=== PATIENT | female | born 1985 | race Caucasian/White ===

== ENCOUNTER 2018-01-22 18:52 | Outpatient (CLI) | payer OTHER | END 2018-01-22 20:35 | disposition home or self-care (01) | LOC: OBT 18:52 → L-D 18:53 → OBT 20:35 | DX: O24.419 Gestational diabetes mellitus in pregnancy, unspecified control (principal); Z3A.34 34 weeks gestation of pregnancy | CPT/HCPCS: 76818 ==

== ENCOUNTER 2018-02-13 00:31 | Inpatient (IN) | payer OTHER ==
[2018-02-13] MEDS: LACTATED RINGER'S 1,000 ML IV ×4 (02:11→19:52)
[2018-02-13 02:13] LABS: ADD MAN DIFF? NO
[2018-02-13 02:15] LABS: BASOPHILS % 0.4 % (0.0-2.0); EOSINOPHILS # 0.1 10^3/ul (0.0-0.5); EOSINOPHILS % 1.4 % (0.0-7.0); HEMATOCRIT 35.9 % (37.0-47.0); HEMOGLOBIN 12.3 g/dl (12.0-16.0); LYMPHOCYTES # 1.7 10^3/ul (0.8-2.9); LYMPHOCYTES % 16.3 % (15.0-51.0); MEAN CORPUSCULAR HEMOGLOBIN 31.1 pg (29.0-33.0); MEAN CORPUSCULAR HGB CONC 34.3 g/dl (32.0-37.0); MEAN CORPUSCULAR VOLUME 90.9 fl (82.0-101.0); MEAN PLATELET VOLUME 11.3 fl (7.4-10.4); MONOCYTE # 0.7 10^3/ul (0.3-0.9); MONOCYTES % 6.3 % (0.0-11.0); NEUTROPHIL # 7.8 10^3/ul (1.6-7.5); PLATELET COUNT 193 10^3/UL (140-415); RED BLOOD COUNT 3.95 10^6/ul (4.20-5.40); RED CELL DISTRIBUTION WIDTH 13.4 % (11.5-14.5)
[2018-02-13 02:15] LABS: WHITE BLOOD COUNT 10.4 10^3/ul (4.8-10.8)
[2018-02-13] MEDS ORDERED: OXYTOCIN 30 UNITS/LR 500 ML IV ×2 (02:30→09:30)
[2018-02-13] MEDS ORDERED: CARBOPROST 250 MCG INJ IM ×2 (02:30→09:30)
[2018-02-13] MEDS ORDERED: METHYLERGONOVINE 0.2 MG INJ IM ×2 (02:30→09:30)
[2018-02-13] MEDS ORDERED: MISOPROSTOL 200 MCG TAB PR ×2 (02:30→09:30)
[2018-02-13 02:35] LABS: INR 0.86; PARTIAL THROMBOPLASTIN TIME 27.9 Sec (23.0-35.0); PROTIME 11.8 Sec (11.9-14.9); PT RATIO 0.9
[2018-02-13] MEDS: CITRIC ACID/NA CITRATE 30 ML CUP PO ×2 (03:00)
[2018-02-13] MEDS: ONDANSETRON 4 MG INJ IV ×2 (03:07)
[2018-02-13 03:09] LABS: HEPATITIS B SURFACE ANTIGEN NEGATIVE (NEGATIVE)
[2018-02-13] MEDS ORDERED: PHENYLephrine (100 MCG/ML) 5ML SYG (03:23)
[2018-02-13] MEDS ORDERED: METOCLOPRAMIDE 10 MG INJ (03:24)
[2018-02-13] MEDS ORDERED: DEXAMETHASONE 4 MG/ML 1 ML INJ (03:24)
[2018-02-13] MEDS ORDERED: OXYTOCIN 10 UNIT INJ (03:24)
[2018-02-13] MEDS ORDERED: KETOROLAC 30 MG INJ (03:24)
[2018-02-13] MEDS ORDERED: morphine SULFATE/PF (10 MG/10 ML) INJ (03:38)
[2018-02-13] MEDS ORDERED: MEPERIDINE 100 MG INJ (03:47)
[2018-02-13] MEDS ORDERED: DIPHENHYDRAMINE 50 MG INJ (03:49)
[2018-02-13] MEDS ORDERED: NALOXONE (0.4 MG/ML) INJ IV (04:00)
[2018-02-13] MEDS ORDERED: morphine 2 MG INJ IV ×2 (04:00)
[2018-02-13] MEDS ORDERED: HYDROCODONE/APAP (5/325) TAB PO (04:00)
[2018-02-13] MEDS ORDERED: ACETAMINOPHEN 500 MG TAB PO (04:00)
[2018-02-13] MEDS ORDERED: NALBUPHINE HCL (10 MG/1 ML) INJ IV (04:00)
[2018-02-13] MEDS ORDERED: ONDANSETRON 4 MG INJ IV (04:00)
[2018-02-13] MEDS ORDERED: DIPHENHYDRAMINE 50 MG INJ IV (04:00)
[2018-02-13] MEDS ORDERED: HYDROmorphONE 0.5 MG/0.5 ML SYG IV ×2 (04:00)
[2018-02-13] MEDS: CEFAZOLIN 2 GM/50 ML (PMX) 50 ML IVPB (05:53)
[2018-02-13] MEDS: OXYTOCIN 30 UNITS/LR 500 ML IV ×2 (06:20→10:36)
[2018-02-13] MEDS ORDERED: ONDANSETRON 4 MG INJ (07:00)
[2018-02-13] MEDS ORDERED: OXYCODONE/ACETAMINOPHEN (5/325) TAB PO (09:30)
[2018-02-13] MEDS: KETOROLAC 30 MG INJ IV ×2 (10:34→19:52)
[2018-02-13 15:12] LABS: RAPID PLASMA REAGIN NONREACTIVE (NR)
[2018-02-13] MEDS: SENNA/DOCUSATE NA (8.6MG/50MG) TAB PO (21:00)
[2018-02-14] MEDS: KETOROLAC 30 MG INJ IV (02:14)
[2018-02-14] MEDS: LACTATED RINGER'S 1,000 ML IV (06:00)
[2018-02-14] MEDS: HYDROCODONE/APAP (5/325) TAB PO ×3 (06:02→21:16)
[2018-02-14] MEDS: LANOLIN 7 GM TUBE TOP ×2 (08:05→21:16)
[2018-02-14 08:09] LABS: ADD MAN DIFF? NO
[2018-02-14 08:12] LABS: WHITE BLOOD COUNT 10.1 10^3/ul (4.8-10.8)
[2018-02-14 08:12] LABS: BASOPHILS % 0.2 % (0.0-2.0); EOSINOPHILS # 0.1 10^3/ul (0.0-0.5); EOSINOPHILS % 0.9 % (0.0-7.0); HEMATOCRIT 28.4 % (37.0-47.0); HEMOGLOBIN 9.7 g/dl (12.0-16.0); LYMPHOCYTES # 1.4 10^3/ul (0.8-2.9); LYMPHOCYTES % 13.7 % (15.0-51.0); MEAN CORPUSCULAR HEMOGLOBIN 31.6 pg (29.0-33.0); MEAN CORPUSCULAR HGB CONC 34.2 g/dl (32.0-37.0); MEAN CORPUSCULAR VOLUME 92.5 fl (82.0-101.0); MEAN PLATELET VOLUME 10.6 fl (7.4-10.4); MONOCYTE # 0.6 10^3/ul (0.3-0.9); MONOCYTES % 5.7 % (0.0-11.0); NEUTROPHILS % 78.7 % (39.0-77.0); PLATELET COUNT 162 10^3/UL (140-415); RED BLOOD COUNT 3.07 10^6/ul (4.20-5.40); RED CELL DISTRIBUTION WIDTH 13.7 % (11.5-14.5)
[2018-02-14] MEDS: SENNA/DOCUSATE NA (8.6MG/50MG) TAB PO ×2 (09:48→21:16)
[2018-02-14] MEDS: OXYCODONE/ACETAMINOPHEN (5/325) TAB PO (11:01)
[2018-02-14] MEDS: MAGNESIUM HYDROXIDE 30ML CUP PO (12:49)
[2018-02-14] MEDS: IBUPROFEN 800 MG TAB PO ×2 (13:50→21:16)
[2018-02-14 15:22] LABS: RHOGAM PROFILE 1 1
[2018-02-14] MEDS: BISACODYL 10 MG SUPP PR (17:37)
[2018-02-14] MEDS: DIBUCAINE 1% 30 GM OINT TOP (18:59)
[2018-02-14] MEDS: WITCH HAZEL/GLYCERIN PAD PR (18:59)
[2018-02-15] MEDS: IBUPROFEN 800 MG TAB PO ×3 (05:51→21:44)
[2018-02-15] MEDS: HYDROCODONE/APAP (5/325) TAB PO ×3 (05:51→21:44)
[2018-02-15] MEDS: SENNA/DOCUSATE NA (8.6MG/50MG) TAB PO ×2 (09:57→21:43)
[2018-02-16] MEDS: OXYCODONE/ACETAMINOPHEN (5/325) TAB PO (00:15)
[2018-02-16] MEDS: IBUPROFEN 800 MG TAB PO ×2 (05:58→14:01)
[2018-02-16] MEDS: HYDROCODONE/APAP (5/325) TAB PO ×2 (05:59→14:01)
[2018-02-16] MEDS: SENNA/DOCUSATE NA (8.6MG/50MG) TAB PO (10:09)
[2018-02-16] MEDS: DIPHTH/TET/ACEL PERTUSS (ADULT) 0.5 ML VIAL IM* (12:32)
== END 2018-02-16 19:09 | disposition home or self-care (01) | DRG 787 ==
LOC: OBT 00:31 → L-D 00:31 → OBT 02:01 → L-D 02:01 → PP1 08:30
PROVIDERS: Obstetrics & Gynecology
PROC: 10D00Z1 Extraction of Products of Conception, Low, Open Approach (ICD-10-PCS; principal; 2018-02-13)
PROC: 4A1HXCZ Monitoring of Products of Conception, Cardiac Rate, External Approach (ICD-10-PCS; 2018-02-13)
PROC: 3E0334Z Introduction of Serum, Toxoid and Vaccine into Peripheral Vein, Percutaneous Approach (ICD-10-PCS; 2018-02-14)
PROC: 3E0234Z Introduction of Serum, Toxoid and Vaccine into Muscle, Percutaneous Approach (ICD-10-PCS; 2018-02-15)
PROC: 3E0234Z Introduction of Serum, Toxoid and Vaccine into Muscle, Percutaneous Approach (ICD-10-PCS; 2018-02-16)
DX: O32.1XX1 Maternal care for breech presentation, fetus 1 (principal); O36.4XX2 Maternal care for intrauterine death, fetus 2; O90.81 Anemia of the puerperium; Z37.3 Twins, one liveborn and one stillborn; O24.429 Gestational diabetes mellitus in childbirth, unspecified control; O30.033 Twin pregnancy, monochorionic/diamniotic, third trimester; Z29.13 Encounter for prophylactic Rho(D) immune globulin; Z3A.37 37 weeks gestation of pregnancy; Z23 Encounter for immunization
CPT/HCPCS: 36415; 62319; 76815; 85025; 85610; 85730; 86592; 86850; 86870; 86885; 86900; 86901; 87340; 88307; 90686; 90715; 96360; 99464